=== PATIENT | female | born 1995 | race Caucasian/White ===

== ENCOUNTER 2018-02-14 18:12 | Emergency (ER) | payer OTHER, SELFPAY ==
[2018-02-14 18:13] VITALS: PULSE 81; RESP 16; TEMP 37.4; O2SAT 98; BMI 24.4
--- NOTE | 2018-02-14 18:51 | EKG12_ITS ---
Test Reason : WEAKNESS Blood Pressure : / mmHG Vent. Rate : 067 BPM Atrial Rate : 067 BPM P-R Int : 154 ms QRS Dur : 080 ms QT Int : 376 ms P-R-T Axes : 048 053 035 degrees QTc Int : 397 ms Normal sinus rhythm Normal ECG Confirmed by JAMES SHELLEY MD ([id number]), editor greeting card JAIME KWON ([id number]) on 02/18/2018 1:47:59 PM Referred By: RAGHAVENDRA Confirmed By:JAMES SHELLEY MD
--- NOTE | 2018-02-14 18:53 | ED.VISSUMM ---
- ER Visit Summary Date of Service: 02/14/18 Chief Complaint: Fever, back pain and weakness History of Present Illness: The patient is a 22 F with no medical problems who presents for 1 day of fever, back pain and weakness. Patient noticed that her ankles felt weak and like they were going to give out on her yesterday. This progressed to her legs feeling like lead. Patient had a fever last night of 103. She has been taking Motrin today for fever. She has had continued weakness in her legs with diminished sensation. She feels short of breath with exertion and is having episodic muscle twitching in the upper and lower extremities. Patient complains of associated sore throat, myalgias, muscular neck pain, shortness of breath with exertion, and headache. Patient denies any vision changes, chest pain, nausea, vomiting, diarrhea. She has not had any recent viral infection or food poisoning illness. She did have a sinus infection 2 months ago. Patient denies any instrumentation in the back, surgery to the back, any injections, IV drug use. Patient was seen by her primary care doctor today, with negative strep and negative urine. Patient's family doctor called prior to patient's arrival and stated that she was having the lower extremity weakness, hyperreflexia, and low back pain, and thus given the concerning findings on her exam, she was sent for further evaluation of concern for transverse myelitis. Physical Examination: Vital signs: afebrile, hemodynamically stable, no hypoxia on room air General: well nourished, well developed, physically fit, in no distress Skin: warm, dry, no rash, no pallor HEENT: normocephalic and atraumatic; PERRL, EOMI, moist mucous membranes Neck; bilateral paraspinal musculature tenderness, no midline tenderness deformities or step-offs, full active range of motion, no meningismus, no lymphadenopathy Cardiovascular: regular rate and rhythm without murmurs, no peripheral edema, 2+ pulses all distal extremities Respiratory: No increased work of breathing, lungs are clear to auscultation bilaterally, no rales, rhonchi or wheezing Abdominal: Abdomen is soft, nontender with normoactive bowel sounds, no guarding or rebound, no masses MSK: Moves all extremities, no deformities, hyperreflexic ankle jerk, weakness in multiple muscle groups of the lower extremities, left weaker than right; weakness in multiple muscle groups of the upper extremities, right weaker than left. Occasional twitch of the upper body or full body. Neuro: Awake and alert, oriented ?4. No facial droop, diminished sensation in the bilateral medial and lateral portions of the feet, no diminished sensation to the dorsum, plantar surface or posterior foot. Test Results: Abnormal Lab Results 02/14/18 02/14/18 02/14/18 19:00 19:00 19:00 WBC 7.8 RBC 4.78 Hgb 14.6 Hct 42.6 MCV 89.1 MCH 30.5 MCHC 34.3 RDW 12.4 RDW Differential 40.2 Plt Count 190 MPV 9.5 Immature Gran % (Auto) 0.100 Neut % (Auto) 79.3 H Lymph % (Auto) 9.9 L [place] % (Auto) 10.5 H Eos % (Auto) 0.1 Baso % (Auto) 0.1 Absolute Neuts (auto) 6.2 Absolute Lymphs (auto) 0.77 L Total Counted Not Reportable ESR 1 PT 14.0 INR 1.1 APTT 26.0 Sodium 138 Potassium 3.6 Chloride 102 Carbon Dioxide 28.0 Anion Gap 8 BUN 6 L Creatinine 1.05 H Estim Creat Clear Calc 96.98 Est GFR (MDRD) Af Amer 84 Est GFR (MDRD) Non-Af 69 BUN/Creatinine Ratio 5.7 L Glucose 91 Lactic Acid Calcium 8.7 Total Bilirubin 0.60 AST 14 L ALT 26 Alkaline Phosphatase 75 Total Creatine Kinase Troponin I < 0.015 C-React Prot Ext Range Total Protein 8.0 Albumin 4.1 Globulin 3.9 Albumin/Globulin Ratio 1.1 Urine Color Urine Clarity Urine pH Ur Specific [place] Urine Protein Urine Glucose (UA) Urine Ketones Urine Occult Blood Urine Nitrite Urine Bilirubin Urine Urobilinogen Ur Leukocyte Esterase Urine RBC Urine WBC Ur Squamous Epith Cells Urine Bacteria Urine Mucus Urine Test Urine Opiates Screen Urine Methadone Screen Ur Barbiturates Screen Ur Phencyclidine Scrn Ur Amphetamines Screen U Methamphetamin-MDMA U Benzodiazepines Scrn Urine Cocaine Screen U Cannabinoids Screen Ur Drug Screen Comment POC Glucose 02/14/18 02/14/18 02/14/18 19:00 19:00 19:26 WBC RBC Hgb Hct MCV MCH MCHC RDW RDW Differential Plt Count MPV Immature Gran % (Auto) Neut % (Auto) Lymph % (Auto) [place] % (Auto) Eos % (Auto) Baso % (Auto) Absolute Neuts (auto) Absolute Lymphs (auto) Total Counted ESR PT INR APTT Sodium Potassium Chloride Carbon Dioxide Anion Gap BUN Creatinine Estim Creat Clear Calc Est GFR (MDRD) Af Amer Est GFR (MDRD) Non-Af BUN/Creatinine Ratio Glucose Lactic Acid 1.0 Calcium Total Bilirubin AST ALT Alkaline Phosphatase Total Creatine Kinase 99 Troponin I C-React Prot Ext Range 65.80 H Total Protein Albumin Globulin Albumin/Globulin Ratio Urine Color Urine Clarity Urine pH Ur Specific [place] Urine Protein Urine Glucose (UA) Urine Ketones Urine Occult Blood Urine Nitrite Urine Bilirubin Urine Urobilinogen Ur Leukocyte Esterase Urine RBC Urine WBC Ur Squamous Epith Cells Urine Bacteria Urine Mucus Urine Test Urine Opiates Screen Urine Methadone Screen Ur Barbiturates Screen Ur Phencyclidine Scrn Ur Amphetamines Screen U Methamphetamin-MDMA U Benzodiazepines Scrn Urine Cocaine Screen U Cannabinoids Screen Ur Drug Screen Comment POC Glucose 79 02/14/18 02/14/18 02/14/18 19:30 19:30 19:30 WBC RBC Hgb Hct MCV MCH MCHC RDW RDW Differential Plt Count MPV Immature Gran % (Auto) Neut % (Auto) Lymph % (Auto) [place] % (Auto) Eos % (Auto) Baso % (Auto) Absolute Neuts (auto) Absolute Lymphs (auto) Total Counted ESR PT INR APTT Sodium Potassium Chloride Carbon Dioxide Anion Gap BUN Creatinine Estim Creat Clear Calc Est GFR (MDRD) Af Amer Est GFR (MDRD) Non-Af BUN/Creatinine Ratio Glucose Lactic Acid Calcium Total Bilirubin AST ALT Alkaline Phosphatase Total Creatine Kinase Troponin I C-React Prot Ext Range Total Protein Albumin Globulin Albumin/Globulin Ratio Urine Color Yellow Urine Clarity Clear Urine pH 6.5 Ur Specific [place] 1.020 Urine Protein 15 H Urine Glucose (UA) Normal Urine Ketones Negative Urine Occult Blood Negative Urine Nitrite Negative Urine Bilirubin Negative Urine Urobilinogen 1 H Ur Leukocyte Esterase 25 H Urine RBC 0 SEEN Urine WBC 0-5 SEEN Ur Squamous Epith Cells 0-5 SEEN Urine Bacteria 1+ Urine Mucus 0 SEEN Urine Test Negative Urine Opiates Screen NEGATIVE Urine Methadone Screen NEGATIVE Ur Barbiturates Screen NEGATIVE Ur Phencyclidine Scrn NEGATIVE Ur Amphetamines Screen NEGATIVE U Methamphetamin-MDMA NEGATIVE U Benzodiazepines Scrn NEGATIVE Urine Cocaine Screen NEGATIVE U Cannabinoids Screen NEGATIVE Ur Drug Screen Comment POC Glucose Emergency Department Course and Treatment: On exam, patient is having diffuse muscle weakness in all extremities, has back tenderness in the upper and lower back, has sensory deficits that are nondermatomal, hyporeflexia in the patellar tendons and hyperreflexia in the ankle jerk, along with fever and sore throat. Patient was discussed with Dr. Kaba, who stated that this constellation of symptoms did not sound central neurologic in origin, but rather sounded more like a viral syndrome such as myositis or an inflammatory/rheumatologic condition. Thus he did not think an MRI was indicated at this time. Workup was performed, showing no leukocytosis, no electrolyte derangements, normal renal function, normal hepatic function, EKG showing no abnormalities, negative troponin, normal CPK, normal lactate. negative. ESR was normal but CRP was significantly elevated at 65.8. Tox negative. Elevated CRP with a normal ESR indicates an acute inflammatory process. Patient has no other findings on exam that were significant. Patient was given IV hydration. On reexamination, patient had been sleeping for a couple hours. When she woke up her muscle weakness had resolved. She had full strength in all muscle groups of the upper and lower extremities. She still had the occasional full body twitch. Ankle jerk was no longer hyperreflexic. Patient was complaining of her sore throat, and examination did show some erythema and very mild exudate, however she had negative strep today. She was discussed again with her primary care doctor to discuss the results and to ensure follow-up. Patient's symptoms are most consistent with an infectious etiology, as she has the constitutional symptoms, the acute onset of symptoms, and they wax and wane depending on her state of rest. Patient symptoms do not seem consistent with myasthenia gravis, as there are no bulbar symptoms or other small muscle groups. She also does not seem consistent with Guillain-Benitez? syndrome, as her symptoms resolved after rest. No acute findings to require admission at this time. Patient and mother felt comfortable going home. She was given strict return precautions. Patient discharged home with her symptoms resolved. Treatment Plan: [] Disposition: [] Impression: Viral syndrome, episodic weakness This note was generated with [employer] software. It may contain incorrect words, spelling, and punctuation that were not noted in review of the chart prior to signing ED Disposition - Plan for ED Patient: Disposition: Home or Assisted Living Chief Complaint: Weakness Instructions: ED Viral Syndrome, ED Weakness [facility] Referrals: Cayden Mendez [Primary Care Provider] - 3-5 Days Additional Instructions: Please use ibuprofen or Tylenol for fever and pain. If at any point you develop difficulty breathing, severe headache with neck pain or stiffness, worsening of your symptoms without improvement with rest, or you have any other concerns, please return immediately to the emergency department for another evaluation.
--- NOTE | 2018-02-14 18:53 | ED.RN ---
NO OLD EKG'S IN MUSE
[2018-02-14 19:16] LABS: Absolute Lymphocyte Count 0.77 X10^3/ul (0.83-4.51); Absolute Neutrophil Count 6.2 X10^3/uL (2.0-7.7); Basophil# 0.01 X10^3/uL; Basophil% 0.1 % (0-1); Eosinophil# 0.01 X10^3/uL; Eosinophils% 0.1 % (0-5); Hematocrit 42.6 % (37-47); Hemoglobin 14.6 g/dl (12.0-15.0); Lymphocyte # 0.77 X10^3/ul (4.0); Lymphocyte % 9.9 % (19-41); Mean Corp Hgb Conc 34.3 g/gl (32-36); Mean Corpuscular Hgb 30.5 pg (27.0-32.0); Mean Corpuscular Volume 89.1 fL (81-99); Mean Platelet Vol. 9.5 fl (6.2-12.0); Monocyte# 0.82 X10^3/uL; Monocyte% 10.5 % (0-10); Neutrophil # 6.17 X10^3/uL (2.7-7.7); Neutrophil % 79.3 % (47-70); Platelet Count 190 K/mm3 (150-450); RBC Distribution Width CV 12.4 % (11.6-14.6); RBC Distribution Width SD 40.2 fl (35.1-43.9); Red Blood Count 4.78 M/mm3 (4.2-5.4); White Blood Count 7.8 K/mm3 (4.4-11.0)
[2018-02-14 19:18] LABS: POSITIVE COUNT NO; POSITIVE DIFFERENTIAL NO; POSITIVE MORPHOLOGY NO
[2018-02-14 19:19] LABS: Erythrocyte Sedimentation Rate 1 mm/hr (0-20); International Normalized Ratio 1.1
[2018-02-14] MEDS: 0.9% Normal Saline 1,000 ML 1000 ML IV (19:27)
[2018-02-14 19:31] LABS: CPK Total, Creatine Kinase 99 U/L (26-192)
[2018-02-14 19:33] LABS: ALB/GLOB Ratio 1.1 RATIO (0.9-2.4); AST(SGOT) 14 U/L (15-37); Alanine Aminotransfer ALT/SGPT 26 U/L (13-56); Albumin, Serum 4.1 g/dL (3.2-5.0); Alkaline Phosphatase 75 U/L (45-117); Anion Gap 8 (5-15); BUN 6 mg/dL (7-18); BUN/Creat Ratio 5.7 RATIO (10-20); Calcium,Total 8.7 mg/dL (8.5-10.1); Chloride 102 mmol/L (98-107); Creatinine, Serum 1.05 mg/dL (0.55-1.02); EST Glomerular Filtration Rate 69 mL/min (>60); Est Glom Filt Rate - Afr Amer 84 mL/min (>60); Estimated Creatinine Clearance 96.98 ml/min; Globulin 3.9 g/dL (2.2-4.2); Glucose 91 mg/dL (74-106); Potassium 3.6 mmol/L (3.5-5.1); Sodium Level 138 mmol/L (136-145)
[2018-02-14 19:36] LABS: Bedside Glucose 79 mg/dL (70-110)
[2018-02-14 19:38] LABS: Mucous, Urine 0 SEEN /hpf (<or=2+); Red Blood Cells-Urine 0 SEEN /hpf (0-5)
[2018-02-14 19:42] LABS: Color, Urine Yellow (Yellow); Glucose, Dipstick Normal (Normal); Ketone-Dipstick Negative (Negative); Leukocyte Esterase-Dipstick 25 /ul (Negative); Nitrite-Dipstick Negative (Negative); Occult Blood-Urine Negative /ul (Negative); Protein-Dipstick 15 mg/dl (Negative); Urine Bilirubin Dipstick Negative (Negative); Urine Clarity Clear (Clear); Urine Urobilinogen 1 mg/dl (Normal); Urine pH 6.5 (5.0 - 8.0)
[2018-02-14 19:44] LABS: Internal QC Validated? YES +Cl - CLEAR BKGD; Pregnancy, Urine Negative Negative
[2018-02-14 20:04] LABS: Amphetamine Urine VISTA NEGATIVE (<1000 ng/mL); Barbiturate Urine VISTA NEGATIVE (< 200 ng/mL); Benzodiazepine Urine VISTA NEGATIVE (< 200 ng/mL); Cocaine Urine VISTA NEGATIVE (< 300 ng/mL); Ecstacy Urine VISTA NEGATIVE (< 500 ng/mL); Methadone Urine VISTA NEGATIVE (< 300 ng/mL); PCP Urine VISTA NEGATIVE (< 25 ng/mL); THC Urine VISTA NEGATIVE (< 50 ng/mL); Vista UDS pH Range 6
[2018-02-14 20:05] LABS: Bacteria 1+ /hpf (None Seen); Squamous Epithelial Cells - UA 0-5 SEEN /hpf (5-10); White Blood Cells 0-5 SEEN /hpf (0-5)
[2018-02-14 20:16] VITALS: PULSE 78; RESP 18; O2SAT 98
[2018-02-14 22:19] VITALS: PULSE 78; RESP 18; O2SAT 98
--- NOTE | 2018-02-14 23:21 | ED.VISSUMM ---
- ER Visit Summary Date of Service: 02/14/18 Chief Complaint: Fever, back pain and weakness History of Present Illness: The patient is a 22 F [] Physical Examination: [] Test Results: [] Emergency Department Course and Treatment: [] Treatment Plan: [] Disposition: [] Impression: [] This note was generated with [employer] dictation software. It may contain incorrect words, spelling, and punctuation that were not noted in review of the chart prior to signing ED Disposition - Plan for ED Patient: Chief Complaint: Weakness Referrals: Carlos Dang MD [STAFF PHYSICIAN] -
--- NOTE | 2018-02-14 23:22 | ED.DEP ---
ED Disposition - Plan for ED Patient: Disposition: Home or Assisted Living Chief Complaint: Weakness Instructions: ED Viral Syndrome, ED Weakness [facility] Referrals: Cayden Mendez [Primary Care Provider] - 3-5 Days Additional Instructions: Please use ibuprofen or Tylenol for fever and pain. If at any point you develop difficulty breathing, severe headache with neck pain or stiffness, worsening of your symptoms without improvement with rest, or you have any other concerns, please return immediately to the emergency department for another evaluation.
[2018-02-14 23:26] VITALS: BP 110/70; PULSE 88; RESP 16; O2SAT 98
[2018-02-14] MEDS: Ibuprofen 400 MG Tablet 800 MG PO (23:31)
== END 2018-02-14 23:33 | disposition home or self-care (01) ==
PROVIDERS: Emergency Provider Emergency Medicine; Family Provider Family Medicine; PCP Family Medicine
DX: B34.9 Viral infection, unspecified (principal); R53.1 Weakness; R50.9 Fever, unspecified; J02.9 Acute pharyngitis, unspecified; M54.9 Dorsalgia, unspecified; M54.2 Cervicalgia; R06.09 Other forms of dyspnea; R51 Headache; R20.2 Paresthesia of skin
CPT/HCPCS: 80053; 80307; 81001; 81025; 82550; 82962; 83605; 84484; 85025; 85610; 85652; 85730; 86140; 87040; 87086; 87088; 93005; 96360; 96361; 99284; J7030

== ENCOUNTER → 2018-09-02 18:13 | Outpatient (CLI) | payer OTHER, SELFPAY ==
[2018-09-02 08:12] VITALS: BMI 24.7
[2018-09-02 20:21] LABS: Chlamydia Trachomatis by PCR Negative (Negative); Neisserai gonorrhoeae by PCR Negative (Negative); Probe Check PASS; Sample Adequacy Control PASS; Specimen Processing Control PASS
== END ==
PROVIDERS: Family Provider Family Medicine; PCP Family Medicine; Referring Provider Nurse Practitioner Women's Health; Visit Provider Nurse Practitioner Women's Health
DX: Z11.3 Encounter for screening for infections with a predominantly sexual mode of transmission (principal)
CPT/HCPCS: 87491; 87591

== ENCOUNTER → 2020-03-18 | Outpatient (CLI) | payer OTHER, SELFPAY ==
[2020-03-18 08:40] VITALS: BMI 24.7
[2020-03-21 05:00] LABS: HSV Culture Without Typing Positive (.)
[2020-03-22 03:06] LABS: Chlamydia By Nucleic Acid AMP Negative (Negative)
[2020-03-22 09:47] LABS: Gonococcus By Nucleic Acid AMP Negative (Negative)
[2020-03-22 20:56] LABS: HPV Reflexed? NOT INDICATED
== END | disposition home or self-care (01) ==
PROVIDERS: PCP Family Medicine; Referring Provider Nurse Practitioner Women's Health; Visit Provider Nurse Practitioner Women's Health
DX: Z12.4 Encounter for screening for malignant neoplasm of cervix (principal); N90.89 Other specified noninflammatory disorders of vulva and perineum
CPT/HCPCS: 87255; 87491; 87591; 88175; G0145

== ENCOUNTER → 2021-03-21 16:12 | Outpatient (CLI) | payer OTHER, SELFPAY ==
[2021-03-21 13:42] VITALS: BMI 24.5
[2021-03-24 10:44] LABS: Chlamydia By Nucleic Acid AMP Negative (Negative)
[2021-03-24 10:53] LABS: Gonococcus By Nucleic Acid AMP Negative (Negative)
[2021-03-27 14:48] LABS: HPV Reflexed? NOT INDICATED
== END ==
PROVIDERS: PCP Family Medicine; Referring Provider Nurse Practitioner Women's Health; Visit Provider Nurse Practitioner Women's Health
DX: Z12.4 Encounter for screening for malignant neoplasm of cervix (principal); Z11.3 Encounter for screening for infections with a predominantly sexual mode of transmission; N76.0 Acute vaginitis
CPT/HCPCS: 87070; 87205; 87491; 87591; 88175; G0145

== ENCOUNTER → 2021-03-28 | Outpatient (CLI) | payer OTHER, SELFPAY | END | disposition home or self-care (01) | LOC: LABSPEC 15:54 | PROVIDERS: PCP Family Medicine; Referring Provider Physician Assistant Surgical; Visit Provider Physician Assistant Surgical | DX: Z11.1 Encounter for screening for respiratory tuberculosis (principal) | CPT/HCPCS: 87635; U0005; U0003 ==

== ENCOUNTER → 2023-02-12 | Outpatient (CLI) | payer OTHER, SELFPAY ==
[2023-02-16 16:15] LABS: HPV Reflexed? NOT INDICATED
== END | disposition home or self-care (01) ==
LOC: LABSPEC 11:22
PROVIDERS: PCP Family Medicine; Referring Provider Nurse Practitioner Women's Health; Visit Provider Nurse Practitioner Women's Health
DX: R87.612 Low grade squamous intraepithelial lesion on cytologic smear of cervix (LGSIL) (principal)
CPT/HCPCS: 87070; 87077; 87205; 88175; G0145

== ENCOUNTER → 2024-02-18 | Outpatient (CLI) | payer OTHER, SELFPAY ==
[2024-02-20 07:08] LABS: Chlamydia By Nucleic Acid AMP Negative (Negative); Gonococcus By Nucleic Acid AMP Negative (Negative)
[2024-02-21 19:40] LABS: HPV Reflexed? NOT INDICATED
== END | disposition home or self-care (01) ==
LOC: LABSPEC 11:22
PROVIDERS: PCP Family Medicine; Referring Provider Nurse Practitioner Women's Health; Visit Provider Nurse Practitioner Women's Health
DX: N89.8 Other specified noninflammatory disorders of vagina (principal); Z12.4 Encounter for screening for malignant neoplasm of cervix; R87.612 Low grade squamous intraepithelial lesion on cytologic smear of cervix (LGSIL)
CPT/HCPCS: 87070; 87205; 87491; 87591; 88175; G0145